=== PATIENT | male | born 1985 | race Caucasian/White ===

== ENCOUNTER → 2016-12-26 | Outpatient (CLI) | payer OTHER ==
--- NOTE | 2016-12-26 15:00 | US ---
EXAMINATION TYPE: US thyroid st tissue head/neck DATE OF EXAM: 12/26/2016 2:47 PM COMPARISON: 09/09/2016 CLINICAL HISTORY: E04.1 THYROID NODULE. GLAND SIZE: Right Lobe: 5.1 x 1.4 x 2.3 cm Overall Parenchyma: homogenous Left Lobe: 5.2 x 1.3 x 2.2 cm Overall Parenchyma: homogeneous Isthmus Thickness: 0.3 cm NODULES RIGHT: # of nodules measured on right: 0 LEFT: # of nodules measured on left: 2 1. 0.3 X 0.2 x 0.3 cm hypoechoic solid nodule at the mid pole with irregular margins. This nodule is wider than tall and shows no intranodular vascularity. Prior size: 0.4 x 0.3 x 0.4 cm 2. 0.5 X 0.3 x 0.5 cm hypoechoic solid nodule at the lower pole with well-defined margins. This nod ule is wider than tall and shows no intranodular vascularity. Prior size: 0.5 x 0.3 x 0.5 cm Bilateral neck scanned, no abnormal lymphadenopathy noted. IMPRESSION: Nonspecific subcentimeter nodularity.
== END | disposition home or self-care (01) ==
LOC: RADUSWWP 14:20
PROVIDERS: ATTEND Family Medicine
DX: E04.2 Nontoxic multinodular goiter (principal)
CPT/HCPCS: 76536

== ENCOUNTER → 2018-07-16 | Outpatient (CLI) | payer OTHER ==
--- NOTE | 2018-07-16 17:00 | US ---
EXAMINATION TYPE: US thyroid st tissue head/neck DATE OF EXAM: 07/16/2018 COMPARISON: 07/09/2017 CLINICAL HISTORY: E04.1 thyroid nodule. GLAND SIZE: Right Lobe: 5.2 x 2.0 x 1.9 cm Overall Parenchyma: homogenous Left Lobe: 2.8 x 1.5 x 1.9 cm Overall Parenchyma: homogeneous Isthmus Thickness: 0.3 cm NODULES RIGHT: # of nodules measured on right: 0 LEFT: # of nodules measured on left: 2 1. 0.3 X 0.3 x 0.4 cm hypoechoic cystic nodule at the mid pole with well-defined margins; . This n odule is wider than tall and shows intranodular vascularity. Prior size: 0.3 x 0.2 x 0.3 cm 2. 0.6 X 0.4 x 0.7 cm hypoechoic solid nodule at the lower pole with well-defined margins; . This n odule is wider than tall and shows intranodular vascularity. Prior size: 0.5 x 0.3 x 0.5 cm ISTHMUS: # of nodules measured in the isthmus: 0 Bilateral neck scanned, no evidence of lymphadenopathy. Nodules as described. IMPRESSION: Small nodules are fairly stable compared to old exam. No dominant thyroid mass..
== END | disposition home or self-care (01) ==
LOC: RADUSWWP 16:27
PROVIDERS: ATTEND Family Medicine
DX: E04.2 Nontoxic multinodular goiter (principal)
CPT/HCPCS: 76536

== ENCOUNTER 2022-11-26 12:54 | Emergency (ER) | payer BC, OTHER ==
--- NOTE | 2022-11-26 13:01 | ED ---
General Adult HPI <Amara Smith - Last Filed: 11/26/22 12:58> - General Source: patient, family, RN notes reviewed Limitations: no limitations <Santos Segal - Last Filed: 11/26/22 16:45> - General Stated complaint: Mental Health,Anxiety - History of Present Illness Initial comments: 37 year old male presents to the emergency department with a chief complaint of anxiety. He reports anxiety for the last month, however today he woke up and feels he is "spiraling." He states " Today is just a bad day, and I don't trust myself." He admits to suicidal ideation. He denies homicidal ideation, auditory/visual hallucinations. Denies previous suicide attempts. (Amara Smith) Patient is a pleasant 37-year-old male presenting to the emergency department with concerns with his thought process. Symptoms have been bad for the past 5-6 weeks. Patient just started Prozac 2 days ago without much improvement. Patient occasionally takes Ativan with mild improvement of symptoms. Patient amiss to having suicidal thoughts with occasional plans. No homicidal thoughts. Patient questions if he occasionally hears sounds are with spurs. Patient feels restless and hard to concentrate. Patient has not been sleeping well. Patient has not been eating or drinking well. Patient stopped his medication in the summer because he felt he was doing well. (Santos Segal) - Related Data Home Medications Medication Instructions Recorded Confirmed FLUoxetine HCL [PROzac] 20 mg PO DAILY 11/26/22 11/26/22 LORazepam [Ativan] 0.25 mg PO DAILY PRN 11/26/22 11/26/22 Allergies Allergy/AdvReac Type Severity Reaction Status Date / Time erythromycin base Allergy Rash/Hives Verified 11/26/22 13:07 [From Pediazole] sulfisoxazole Allergy Rash/Hives Verified 11/26/22 13:07 [From Pediazole] Review of Systems ROS Other: All systems not noted in ROS Statement are negative. <Amara Smith - Last Filed: 11/26/22 12:58> ROS Other: All systems not noted in ROS Statement are negative. Constitutional: Denies: fever Eyes: Denies: eye pain ENT: Denies: ear pain Respiratory: Denies: cough Cardiovascular: Denies: chest pain Endocrine: Denies: fatigue Gastrointestinal: Denies: abdominal pain Psychiatric: Reports: as per HPI, anxiety, depression, suicidal thoughts <Santos Segal - Last Filed: 11/26/22 16:45> ROS Statement: Those systems with pertinent positive or pertinent negative responses have been documented in the HPI. General Exam Limitations: no limitations General appearance: alert, in no apparent distress Head exam: Present: normocephalic Eye exam: Present: normal appearance Neck exam: Present: normal inspection Respiratory exam: Present: normal lung sounds bilaterally Cardiovascular Exam: Present: regular rate, normal rhythm GI/Abdominal exam: Present: soft. Absent: tenderness Extremities exam: Present: normal inspection Neurological exam: Present: alert Psychiatric exam: Present: anxious Skin exam: Present: normal color <Santos Segal - Last Filed: 11/26/22 16:45> Course Vital Signs 11/26/22 13:03 Temperature 96 F L Pulse Rate 79 Respiratory 20 Rate Blood Pressure 154/96 O2 Sat by Pulse 98 Oximetry Medical Decision Making <Santos Segal - Last Filed: 11/26/22 16:45> - Medical Decision Making Was pt. sent in by a medical professional or institution (, PA, MANAGER VAN, urgent care, hospital, or long-term...) When possible be specific @ -No Did you speak to anyone other than the patient for history (EMS, parent, family, police, friend...)? What history was obtained from this source @ -Family is present and helps provide history. Including patient's past history Did you review nursing and triage notes (agree or disagree)? Why? @ -I reviewed and agree with nursing and triage notes Were old charts reviewed (outside hosp., previous admission, EMS record, old EKG, old radiological studies, urgent care reports/EKG's, long-term records)? Report findings @ -No old charts were reviewed Differential Diagnosis (chest pain, altered mental status, abdominal pain women, abdominal pain men, vaginal bleeding, weakness, fever, dyspnea, syncope, headac he, dizziness, GI bleed, back pain, seizure, CVA, palpatations, mental health)? @ -Differential is not limited to mental health problems, medical problems, depression, psychosis, bipolar, this is a limited but not all-inclusive list EKG interpreted by me (3pts min.). @ -As above X-rays interpreted by me (1pt min.). @ -None done CT interpreted by me (1pt min.). @ -None done U/S interpreted by me (1pt. min.). @ -None done What testing was considered but not performed or refused? (CT, X-rays, U/S, labs)? Why? @ -None What meds were considered but not given or refused? Why? @ -None Did you discuss the management of the patient with other professionals (professionals i.e. DrAdrienne, PA, MANAGER VAN, lab, RT, psych nurse, school social worker, ordnance technician, teacher, fire control officer, protective services case worker)? Give summary @ -Case was discussed with Priti from EPS who did evaluate patient and does recommend discharge. She will help ensure follow-up Was smoking cessation discussed for >3mins.? @ -No Was critical care preformed (if so, how long)? @ -No Were there social determinants of health that impacted care today? How? (Homelessness, low income, unemployed, alcoholism, drug addiction, transportation, low edu. Level, literacy, decrease access to med. care, group home, rehab)? @ -No Was there de-escalation of care discussed even if they declined (Discuss DNR or withdrawal of care, Hospice)? DNR status @ -No What co-morbidities impacted this encounter? (DM, HTN, Smoking, COPD, CAD, Cancer, CVA, ARF, Chemo, Hep., AIDS, mental health diagnosis, sleep apnea, morbid obesity)? @ -None Was patient admitted / discharged? Hospital course, mention meds given and route, prescriptions, significant lab abnormalities, going to OR and other pertinent info. @ -Discharge. Patient reevaluated and is feeling better. Patient denies suicidal ideation and does contract for safety. Undiagnosed new problem with uncertain prognosis? @ -No Drug Therapy requiring intensive monitoring for toxicity (Heparin, Nitro, Insulin, Cardizem)? @ -No Were any procedures done? @ -No Diagnosis/symptom? @ -Depression Acute, or Chronic, or Acute on Chronic? @ -Acute on chronic Uncomplicated (without systemic symptoms) or Complicated (systemic symptoms)? @ -Uncomplicated Side effects of treatment? @ -No Exacerbation, Progression, or Severe Exacerbation? @ -No Poses a threat to life or bodily function? How? (Chest pain, [place], [place], pneumonia, PE, COPD, DKA, ARF, appy, cholecystitis, CVA, Diverticulitis, Homicidal, Suicidal, threat to staff... and all critical care pts) @ -No (Santos Segal) - Lab Data Lab Results 11/26/22 Range/Units 14:55 Urine Opiates Screen Not Detected (NotDetected) Ur Oxycodone Screen Not Detected (NotDetected) Urine Methadone Screen Not Detected (NotDetected) Ur Propoxyphene Screen Not Detected (NotDetected) Ur Barbiturates Screen Not Detected (NotDetected) U Tricyclic Antidepress Not Detected (NotDetected) Ur Phencyclidine Scrn Not Detected (NotDetected) Ur Amphetamines Screen Not Detected (NotDetected) U Methamphetamines Scrn Not Detected (NotDetected) U Benzodiazepines Scrn Detected H (NotDetected) Urine Cocaine Screen Not Detected (NotDetected) U Marijuana (THC) Screen Detected H (NotDetected) Disposition <Amara Smith - Last Filed: 11/26/22 12:58> Is patient prescribed a controlled substance at d/c from ED?: No Time of Disposition: 16:45 <Santos Segal - Last Filed: 11/26/22 16:45> Clinical Impression: Depression Disposition: HOME SELF-CARE Condition: Stable Instructions (If sedation given, give patient instructions): Depression (ED) Additional Instructions: Please do follow-up with primary care physician in the next day or 2 for recheck. Please follow-up with mental health services as directed. Return for thoughts of self-harm, worsening symptoms or other concerns. Referrals: Liborio Vides DO [Primary Care Provider] - 1-2 days
[2022-11-26 13:06] VITALS: TEMP 96
[2022-11-26 15:28] LABS: Amphetamine Screen,Urine Not Detected (NotDetected); Barbiturate Screen,Urine Not Detected (NotDetected); Benzodiazepines Screen,Urine Detected (NotDetected); Cocaine Screen,Urine Not Detected (NotDetected); Methadone Screen, Urine Not Detected (NotDetected); Opiate Screen,Urine Not Detected (NotDetected); Oxycodone Screen, Urine Not Detected (NotDetected); Phencyclidine Screen,Urine Not Detected (NotDetected); Tricyclic Antidepressant,Urine Not Detected (NotDetected); Urn Cannabinoid Scrn Detected (NotDetected)
[2022-11-26 17:00] VITALS: BP 142/86; PULSE 80; RESP 18
== END 2022-11-26 17:05 | disposition home or self-care (01) ==
LOC: EC 12:54
DX: F32.A Depression, unspecified (principal); Z88.1 Allergy status to other antibiotic agents; Z88.2 Allergy status to sulfonamides
CPT/HCPCS: 80306; 82075; 99283

== ENCOUNTER → 2024-04-26 | Outpatient (CLI) | payer BC ==
--- NOTE | 2024-04-26 16:52 | US ---
EXAMINATION TYPE: US thyroid st tissue head/neck DATE OF EXAM: 04/26/2024 COMPARISON: Most recent 07/16/2018 CLINICAL INDICATION: Male, 38 years old with history of E04.1 NONTOXIC SINGLE THYROID NODULE; Follow up thyroid nodules GLAND SIZE: Right Lobe: 5.9 x 1.7 x 2.1 cm Overall Parenchyma: homogeneous Left Lobe: 5.7 x 1.7 x 2.0 cm Overall Parenchyma: homogeneous Isthmus Thickness: 0.3 cm NODULES RIGHT: # of nodules measured on right: 0 LEFT: # of nodules measured on left: 2 1. 0.5 X 0.4 x 0.4 cm, mid , Prior size: 0.3 x 0.3 x 0.4 cm TIRADS Score: 4 TIRADS Category 4: Composition: Solid or almost completely solid (2 points). Echogenicity: Hypoechoic (2 points). Shape: Wider than tall (0 points). Margin: Smooth (0 points). Echogenic foci: None or large comet-tail artifacts (0 points) Recommendation: If >1.5cm: FNA; If >1cm: Follow up at 1,2, 3,5 years 2. 1.0 X 0.6 x 0.9 cm, lower Prior size: 0.6 x 0.4 x 0.7 cm TIRADS Score: 4 TIRADS Category 4: Moderately Suspicious Composition: Solid or almost completely solid (2 points). Echogenicity: Hypoechoic (2 points). Shape: Wider than tall (0 points). Margin: Smooth (0 points). Echogenic foci: None or large comet-tail artifacts (0 points) Recommendation: If >1.5cm: FNA; If >1cm: Follow up at 1,2, 3,5 years ISTHMUS: # of nodules measured in the isthmus: 0 Bilateral neck scanned, no evidence of lymphadenopathy. IMPRESSION: 1. Left inferior thyroid nodule which may be outside the thyroid gland and may represent parathyroid adenoma. Findings are slightly larger compared to 2018 study. Correlate with nuclear medicine parath yroid sestamibi scan have not already performed. 2. Left thyroid nodule that meets criteria for follow-up measuring 5 mm.
== END | disposition home or self-care (01) ==
LOC: RADUSWWP 14:21
PROVIDERS: ATTEND Family Medicine
DX: E04.2 Nontoxic multinodular goiter (principal)
CPT/HCPCS: 76536

== ENCOUNTER → 2024-06-19 | Outpatient (CLI) | payer BC ==
--- NOTE | 2024-06-19 12:47 | NM ---
EXAMINATION TYPE: NM parathyroid w/spect DATE OF EXAM: 06/19/2024 COMPARISON: NONE CLINICAL INDICATION: Male, 39 years old with history of D35.1 BENIGN NEOPLASM OF PARATHYROID GLAND; TECHNIQUE: Following administration of 24.1 mCi Tc99m Sestamibi. Anterior projection images of the neck and ches t were obtained 10 minutes and 3 hours post injection. SPECT images of the neck and chest were obtai mary and reconstructed in three axes. FINDINGS: Thyroid tracer washout: Delayed images demonstrate near-complete tracer washout from the thyroid. Parathyroid uptake: None. The two-hour delayed images do not demonstrate any focal abnormal persisten t uptake in the region of the parathyroid glands to suggest parathyroid adenoma. Normal uptake: There is physiological tracer uptake in the myocardium, liver, salivary glands, and th yroid gland. IMPRESSION: Normal parathyroid imaging study. No evidence for mediastinal uptake to suggest mediastinal parathyro id adenoma
== END | disposition home or self-care (01) ==
LOC: RADNMMAIN 07:50
PROVIDERS: ATTEND Family Medicine
DX: D35.1 Benign neoplasm of parathyroid gland (principal)
CPT/HCPCS: 78071; A9500

== ENCOUNTER → 2024-11-11 | Outpatient (CLI) | payer BC ==
--- NOTE | 2024-11-11 18:02 | US ---
EXAMINATION TYPE: US thyroid st tissue head/neck DATE OF EXAM: 11/11/2024 COMPARISON: Multiple thyroid ultrasounds with most recent 04/26/2024 CLINICAL INDICATION: Male, 39 years old with history of E04.1 THYROID NODULE; F/U TECHNIQUE: Grayscale and color Doppler imaging of the thyroid gland. FINDINGS: GLAND SIZE: Right Lobe: 5.6x2.3x2.1 cm Overall Parenchyma: homogeneous Left Lobe: 5.2x2.0x2.2 cm Overall Parenchyma: homogeneous Isthmus Thickness: 0.5 cm NODULES RIGHT: # of nodules measured on right: 0 LEFT: # of nodules measured on left: 2 1. 0.4 X 0.3 x 0.4 cm, mid mid, solid or almost completely solid, hypoechoic nodule, which is wider than tall, with ill-defined margins, without echogenic foci. TR 4. Prior size: 0.5 x 0.4 x 0.4 cm 2. 0.9 X 0.7 x 0.8 cm, lower mid, solid or almost completely solid, hypoechoic nodule, which is wi alhaji than tall, with smooth margins, without echogenic foci. TR 4. Prior size: 0.9 x 0.9 x 0.6 cm ISTHMUS: # of nodules measured in the isthmus: 0 Bilateral neck scanned, no evidence of lymphadenopathy. IMPRESSION: Stable subcentimeter TR 4 thyroid nodules. No new or enlarging thyroid nodules. ACR TI-RADS LEVEL: TR-RADS 4: Follow if > 1 cm, FNA if > 1.5 cm *Highest TI-RADS level nodule reported [facility], , 11/11/2024 5:59 PM
== END | disposition home or self-care (01) ==
LOC: RADUSWWP 16:44
PROVIDERS: ATTEND Family Medicine
DX: E04.2 Nontoxic multinodular goiter (principal)
CPT/HCPCS: 76536

== ENCOUNTER 2025-03-20 19:45 | Emergency (ER) | payer BC ==
[2025-03-20 20:21] VITALS: TEMP 97.9
--- NOTE | 2025-03-20 21:09 | XR ---
EXAMINATION TYPE: XR shoulder limited LT, XR clavicle LT DATE OF EXAM: 03/20/2025 9:03 PM COMPARISON: None. CLINICAL INDICATION: Male, 39 years old with history of L shoulder injury, pain TECHNIQUE: XR shoulder limited LT, XR clavicle LT views were obtained FINDINGS: There is complete fracture with overriding of the fracture components and mild comminution Left clavi ted at its middle one third. AC joint is intact. Glenohumeral joint space is intact. The visualized r ibs are intact and unremarkable. IMPRESSION: Left clavicular fracture as discussed. [facility], , 03/20/2025 9:07 PM
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
[2025-03-20 21:49] VITALS: BP 125/72; PULSE 71; RESP 20
[2025-03-20] MEDS: ACET/COD 300 MG/30 MG STARTER PACK 6 TAB BTL PO STA (21:52)
[2025-03-20] MEDS: KETOROLAC 15 MG/ML 1 ML VIAL IM STA (21:53)
[2025-03-20] MEDS: MORPHINE SULFATE 4 MG/ML SYRINGE IM STA (21:54)
[2025-03-20] MEDS: ACETAMINOPHEN TAB 325 MG TAB PO STA (21:55)
== END 2025-03-20 22:02 | disposition home or self-care (01) ==
LOC: EC 19:45
DX: S42.022A Displaced fracture of shaft of left clavicle, initial encounter for closed fracture (principal); F17.200 Nicotine dependence, unspecified, uncomplicated; Z88.2 Allergy status to sulfonamides; Z88.1 Allergy status to other antibiotic agents; V86.56XA Driver of dirt bike or motor/cross bike injured in nontraffic accident, initial encounter
CPT/HCPCS: 73000; 73020; 99283; 96372 ×2; L3670 ×2; J2270; J1885